=== PATIENT | male | born 1965 | race Caucasian/White ===

== ENCOUNTER 2025-08-20 16:58 | Emergency (ER) | payer BC, SELFPAY ==
--- OUTSIDE RECORDS SUMMARY | 2023-09-05 10:30 | XMS_ITS | Continuity of Care Document ---
Author Organization [facility] Address [address] [place] [address] Phone Care Team Providers Care Lock Tender Chief Operator Name Role Phone Carley BARFIELD, Ilia Unavailable Unavailable Procedures Procedure Date IMMUNIZATION ADMIN FLU VAC NO PRSV 4 ROMÁN 3 YRS+ Advance Directives Directive Yes / No Effective Date File Name No Information Encounters Encounter Description Practice Location Reason(s) For Visit Diagnoses Date Provider Providers Copied on Encounter [facility], [address], [place], [id number], [place] tel:[phone] [facility] No Information Carley NEGRON Ilia. [address] [place] [address], [id number], [place]. tel:[phone] Family History Family Member Type Diagnosis Age At Onset No Information Immunizations Vaccine Date Status Comments Flulaval/ Fluarix administered Source: Ne w Immunization Record Payers Payer name Insurance type Covered republican ID Authoriza tiopal(s) [employer] BL [id number] [facility] [id number] Social History Type Description Quantity Date Captured Comments Alcohol Use Details Unknown Caffeine Use Details Unknown Tobacco Use Status No Information Smoking Status No Information Sex Male Sexual Orientation Straight or heterosexual Gender Identity Male Chief Complaint And Reason For Visit No Information Reason For Referral Reason For Referral No Information Plan Of Treatment Date Type Action Status Goal CT-Colonography. Due on due Goal Unhealthy drug use screening . Due on due Goal Lipid panel. Due on due Goal Colonoscopy. Due on due Goal Influenza vaccine. Due on due Goal FIT. Due on due Goal Tdap. Due on due Goal Depression screening. Due on due Goal Hepatitis C screening. Due o n due Goal Zoster vaccine (). Due on due Goal PRAPARE ASSESSMENT. Due on due Goal Tdap Vaccine. Due on 2023 due Goal FIT-DNA. Due on due Goal FOBT. Due on due History Of Present Illness Encounter Date Complaint History Of Prese nt Illness No Information Functional Status Date Functional Assessmen t No Information Instructions Date Instruction Additional Infor mation No Information Assessments Type Assessment Date No Information Patient Care Teams Name Effective Dates (start - stop) Status Members No Information
--- OUTSIDE RECORDS SUMMARY | 2025-08-16 08:30 | XMS_ITS | Encounter Summary ---
Author Organization [facility] Address [address] [place] [address] Care Team Providers Care Image Consultant Name Role Phone Jim Vale DO Unavailable [phone] Jim Vale DO Primary Care Provider [phone] Reason for Visit * ReasonCommentsEye Problem Encounter Details DateTypeDepartmentCare Team (Latest Contact Info)Fvgabvtcfjl84/22/2025 8:30 AM ESTOffice Visit [facility] [address] [facility] [address] [place] [id number] Janelle Maza NP [address] [facility] [address] [place] [address] Status post fall (Primary Dx); Acute pain of right shoulder; Acute pain of left knee; Vision changes; Hypertensive heart disease without heart failure Social History Tobacco UseTypesPacks/DayYears UsedDateSmoking Tobacco: NeverSmokeless Tobacco: NeverAlcohol UseStandard Drinks/WeekCommentsYes0 (1 standard drink = 0.6 oz pure alcohol)Points: 12, Positive Interpretation; Caffeine: coffee 1-2 cups a day AUDIT-CAnswerDate RecordedQ1: How often do you have a drink containing alcohol?4 or more times a week01/28/2025Q2: How many drinks containing alcohol do you have on a typical day when you are drinking?7 to Q3: How often do you have six or more drinks on one occasion?Daily or almost daily01/28/2025PHQ-2Answer Date RecordedPatient Health Questionnaire-2 [id number] and Gender InformationValueDate RecordedSex Assigned at BirthNot on fileLegal SexMale 11/07/2022 6:58 PM EDTGender IdentityNot on fileSexual OrientationNot on file 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 on fileNot on filedocumented as of this encounter Last Filed Vital Signs Vital SignReadingTime TakenCommentsBlood Elujbtfj217/9008/16/2025 8:45 AM EST Lcpqp670308/16/2025 8:45 AM ESTTemperature--Respiratory Srep996110/17/2024 8:45 AM ESTOxygen Ekudzhikfw42%08/16/2025 8:45 AM ESTInhaled Oxygen Concentration-- Weight--Height--Body Mass Index--documented in this encounter Progress Notes * Janelle Maza, MARISABEL - 08/16/2025 8:30 AM EST Images from the original note were not included. Subjective Patient ID: Alexey Schroeder (: 1965) is a 60 y.o. male who presents for Eye Problem. HPI History of Present Illness The patient presents for evaluation of visual disturbance, shoulder pain, and sleep issues. He experienced a fall, resulting in injuries to his knee, elbow, and shoulder. A few hours post-fall, he noticed a transient visual disturbance in one eye, described as a U-shaped, squiggly pattern that moved back and forth. This episode lasted approximately 20 minutes and was not associated with any headaches. He has not experienced any recurrence of this visual phenomenon since then. He also reports no slurring of speech or any weakness. He states his things his L eye us puffy and red. He denies itching or crusty drainage. He has been experiencing shoulder discomfort for several years, which has limited his range of motion. Previous x-rays suggested a potential rotator cuff tear, but this was not confirmed. He reports persistent soreness in the shoulder and tightness in the elbow, but no significant pain. He does notwant a referral to orthopedics for a cortisone injection. He has been using a CPAP machine for sleep apnea, which initially improved his sleep duration to 5 hours. However, he now reports a regression to 2 hours of sleep per night. He attributes this to frequent urination at night, necessitating bathroom visits every 2 hours. He is scheduled for another sleep study. He does not monitor his blood pressure during stress episodes. Current Outpatient Medications Medication Instructions allopurinol (ZYLOPRIM) 100 mg, Oral, Daily amLODIPine-benazepril (Lotrel) 5-40 MG capsule 1 capsule, Oral, Daily Apple Cider Vinegar 500 MG tablet 1 tablet, Every 24 hours cinnamon 500 mg, Every 24 hours DULoxetine (Cymbalta) [address] capsule TAKE 1 CAPSULE BY MOUTH DAILY, DO NOT CRUSH OR CHEW GARLIC PO Take by mouth indapamide (LOZOL) 2.5 mg, Oral, Every morning Milk Thistle 500 MG capsule 1 capsule, Every 24 hours Multiple Vitamin (Multi Vitamin) tablet 1 tablet, Every 24 hours nebivolol (BYSTOLIC) 5 mg, Oral, Daily nebivolol (BYSTOLIC) 15 mg, Oral, Daily omega-3 (FISH OIL) 1,000 mg, Every 24 hours pancrelipase, Tkg-Ekfp-Krbu, (Zenpep) 13838-15549 units capsule delayed-release particles capsule 1capsule, Oral, Every morning pantoprazole (PROTONIX) 40 mg, Oral, Daily before breakfast, Do not crush, chew, or split. psyllium (Metamucil) 48.57 % powder Daily rosuvastatin (CRESTOR) 20 mg, Oral, Nightly No Known Allergies Patient Active Problem List Diagnosis Atherosclerosis of aorta Atrial arrhythmia Calculus of kidney Gout, unspecified Hoarding behavior Hypertensive heart disease without heart failure Insomnia Obesity Panic attacks Pure hypercholesterolemia Solitary pulmonary nodule Avalos's esophagus without dysplasia Alcohol abuse Coronary artery disease involving [place] si[place] coronary artery of [place]gl[place] sioux heart without angina pectoris Impaired fasting blood sugar Metabolic dysfunction-associated steatohepatitis (MASH) Review of Systems Constitutional: Negative for chills, fatigue and fever. Eyes: Positive for redness and visual disturbance. Musculoskeletal: L knee, R shoulder and elbow pain Objective Vital signs: BP 150/90 (Patient Position: Sitting) Pulse 96 Resp 16 SpO2 96% Physical Exam Constitutional: Appearance: Normal appearance. HENT: Head: Normocephalic. Mouth/Throat: Mouth: Mucous membranes are moist. Eyes: General: Lids are normal. Vision grossly intact. Extraocular Movements: Extraocular movements intact. Conjunctiva/sclera: Right eye: Right conjunctiva is injected. Left eye: Left conjunctiva is injected. Pupils: Pupils are equal, round, and reactive to light. Musculoskeletal: Right shoulder: Tenderness present. Decreased range of motion. Left knee: Swelling present. Decreased range of motion. Tenderness present. Skin: General: Skin is warm and dry. Neurological: Mental Status: He is alert and oriented to person, place, and time. Psychiatric: Mood and Affect: Mood normal. Assessment/Plan Assessment & Plan 1. Visual disturbance: - He reported a transient visual disturbance lasting approximately 20 minutes, characterized by a squiggly U-shaped pattern in one eye. He is unsure what eye this occurred in. There were no associated headaches or recurrent episodes. - He has not seen an eye doctor recently. He states he does have a family history of glaucoma. - He did not have any changes in his speech or any notable weakness. - I discussed ordering a CT scan of the head was discussed as a potential diagnostic measure to rule out any serious underlying conditions. He will monitor his symptoms and ensure they do not recur. If they do, a CT scan will be ordered. If symptoms persist over the Analisa period, he is advised to seek immediate medical attention at the ER. 2. Shoulder pain: - He has chronic shoulder pain with a recent exacerbation following a fall. - Previous x-rays suggested a possible rotator cuff issue, but no MRI was performed. - He declined a referral to orthopedics for a cortisone injection. He will apply ice to the affected area and monitor his symptoms. 3. Sleep issues: - He has been using a CPAP machine but reports inconsistent sleep duration, currently sleeping only2 hours at a time. He attributes this to frequent nighttime urination. - He is scheduled for another sleep study to reassess his condition. 4. Elevated blood pressure: - His blood pressure was recorded at 150/90 during this visit. - He will monitor his blood pressure at home over the weekend and report any significant changes. Problem List Items Addressed This Visit Hypertensive heart disease without heart failure Overview [facility] Other Visit Diagnoses Status post fall - Primary Acute pain of right shoulder Acute pain of left knee Vision changes Health Maintenance Topic Date Due Pneumococcal Vaccine: Pediatrics (0 to 5 Years) and At-Risk Patients (6 to 64 Years) (1 of 2 - PCV)Never done Influenza Vaccine (1) 04/26/2025 Colorectal Cancer Screening 01/09/2034 COVID-19 Vaccine Discontinued Immunization History Administered Date(s) Administered Influenza, injectable, MDCK, preservative free, quadrivalent 09/06/2020 Influenza, injectable, MDCK, quadrivalent 06/13/2018 Influenza, injectable, quadrivalent, preservative free 09/05/2023 Influenza, seasonal, injectable, preservative free 09/05/2012 Influenza, seasonal, intradermal, preservative free 09/10/2013 Moderna SARS-CoV-2 Vaccination 11/12/2020, 12/10/2020, 07/27/2021 Td (adult), 5 Lf tetanus toxoid, preservative free, adsorbed 12/30/2006 Tdap 01/30/2022 Tetanus toxoid, adsorbed 12/30/2006 -Patient's chronic conditions have been reviewed in preparation for this appointment. Protocols reviewed and updated. A collaborative plan of care has been created for pt regarding specific health concerns. Any barriers to care have been identified and addressed. Any part of this document that has been added/copied from other documents has been reviewed for accuracy and updated as appropriate at the time of the patient encounter. - Follow as scheduled or sooner as needed. Janelle Maza NP documented in this encounter Plan of Treatment DateTypeDepartmentCare Team (Latest Contact Info)Egccqktqxfi80/05/2026 9:00 AM ESTOffice Visit [facility] [address] [place] [address] Jim Vale DO [address] [place] [address] documented as of this encounter Visit Diagnoses Diagnosis Status post fall- Primary Acute pain of right shoulder Acute pain of left knee Vision changes Hypertensive heart disease without heart failure Unspecified hypertensive heart disease without heart failure documented in this encounter Care Teams Team MemberRelationshipSpecialtyStart DateEnd Date Jim Vale DO [address] [place] [address] PCP - Narda Morataya11/24/20 Jim Vale DO [address] [place] [address] PCP - GeneralInternal Medicine01/01/23documented as of this encounter
--- OUTSIDE RECORDS SUMMARY | 2025-08-20 12:24 | XMS_ITS | Continuity of Care Document ---
Author Organization [facility] Address [address] [place] [address] Phone Care Team Providers Care Cad Administrator Name Role Phone Jim Vale DO Primary Care Provider Fadumo Garcia NP-C Attending Provider José Miguel Rossi DO Emergency Provider Care Teams Patient Care Team Team Status: Active Member Role/Relationship Status Dates Jim Vale DO Primary Care Provider Active Visit Care Team Team Status: Inactive Member Role/Relationship Status Dates Jim Vale DO Primary Care Provider Active Start: May 26, 2025 End: May 26ndra Radha NP-CAttending ProviderActiveStart: May 26, 2025 End: May 26, 2025 Patient Care Team Team Status: Inactive Member Role/Relationship Status Dates Jim Vale DO Primary Care Provider Active Start: August 20, 2025 End: August 20, 2025Anastacio Kraus ProviderActiveStart: August 20, 2025 End: August 20, 2025 Chief Complaint and Reason for Visit Chief Complaint Admit Date RAMON/ follow up May 26, 2025 8: 36am high bp August 20, 2025 4:27pm Reason for Visit Admit Date Alcoholism May 26, 2025 8: 36am BMI 39.0-39.9,adult May 26, 2025 8: 36am Hypertension May 26, 2025 8: 36am Nocturia May 26, 2025 8: 36am Nocturnal hypoxia October 1st, 2025 8: 36am Sleep apnea May 26, 2025 8: 36am Allergies, Adverse Reactions, Alerts Allergen Type Severity Reaction Last Updated Verified Status No Known Allergies Allergy Unknown April 01, 2025 9:48amYesActive Social History Smoking Status Status Start Date End Date Date of Observa tion Never smoked tobacco (finding) January 30, 2022 8:54pm Observation Status Observation Response Date of Response Legal Sex Male (finding) Sex Assigned At BirthMaleJuly 1964 Problems Active Problems Problem Diagnosis/Recorded Date Onset Date Stat us Screen for colon cancer June 21, 2017 6:22am Unkn own Active Sleep apnea April 30, 2024 8:43am Unknown A ctive Nocturia April 30, 2024 8:45am Unknown A ctive Alcoholism April 30, 2024 8:45am Unknown A ctive Diarrhea June 21, 2017 6:22am Unknown Ac tive Nocturnal hypoxia May 26, 2025 8:50am Unknown Active BMI 39.0-39.9,adult April 30, 2024 8:45am Unknown Active GERD (gastroesophageal reflux disease) June 21, 017 6:22am Unknown Active Barretts esophagus June 21, 2017 6:22am Unknown Active Hypertension January 30, 2022 8:23pm Unknown Active Laceration of foot, right January 30, 2022 7:54pm Unknow n Active Medications Medication Status Dose Units Route Directions Qty Days Refills S tart Date Stop Date End Date Reason(s) Instructions Adherence Allopurinol 100 mg tablet Active 100 MG PO Daily June 20, 2017 11:00pmUnknownAmlodipine-Benazepril 5-10 mg xtwuhzfIhkmge0AOC PODailyOctober 2016 11:00pmUnknownRosuvastatin 20 mg jkywohJisnml72ZMXV DailyOctober 2016 11:83kwIfeyaplHeavuq-Mgtphrlr-Wzjuali (Pork) (Zenpep) 25,000-79,000- 105,000 unit capsule,delayed release(DR/EC)ActiveCAPPOSept2024 11:00pmUnknownduloxetineActivePOSept2024 11:00pmUnknown nebivololActivePOSept2024 11:00pmUnknownpantoprazoleActivePO May 25, 2025 11:00pmUnknown Immunizations Immunization Event Date Not Given Reason Dose Number Glass Novelty Maker Lot Number Reason(s) Given Vaccine Information Statement (VIS) Detail Administration Location Tetanus, Diphtheria, Pertussis (Tdap) [facility] 30[id number] Device Date Implanted Device Details [id number] 0.8-1.7MM August 08, 2018 Vital Signs Vital Reading Result Reference Range Collection Date/Time Height 72 [in_i] May 26, 2025 7:68rbXfpiva374.99 kgOctober 2024 7:52amHeart Rate96 /min 60-100October 2024 7:52amOxygen saturation by Pulse eekwwyel74 %95-100 May 26, 2025 7:52amBP Jnrmvmwj852 mm[Hg]100-140October 2024 7:52amBP Dlqupzppg78 mm[Hg]60-100October 2024 7:52amBMI (Body Mass Index)39.4 kg/m2 May 26, 2025 7:52am Advance Directives Advance Directive Response Recorded Date/ Time Advance Directives No June 19, 2017 12:19pm Insurance Providers Guarantor Wero Gilliland Address [address] [place] [phone] Info.Home Phone: Payer Group Member ID Coverage Type Subscriber Relationship to Subscriber Effective Date Expiration Date Narda SILVER/NIRMALA Retired Id: [id number] Smarsh , M Id: [id number] [address] [address] Home Phone: Email: @[employer]Self Encounters Encounter Location(s) Arrival/Admit Date Discharge/Departure Date Discharge/Departure Disposition Provider(s) Departed Physician/ Provider Office Visit -[facility] May 26, 2025 8:36am May 26, 2025 9:09am Discharged to home care or self care (routine discharge) Fadumo Garcia APRN Departed Emergency -Emergency Room August 20, 2025 4:27pm August 20, 2025 4:35pm Left against medical advice or discontinued care Recent Diagnosis Onset Date Admit Date Alcoholism Unknown May 26 8:36am BMI 39.0-39.9,adult Unknown May 26, 2025 8:36am Hypertension Unknown May 26 8:36am Nocturia Unknown May 26 8:36am Nocturnal hypoxia Unknown May 26, 025 8:36am Sleep apnea Unknown May 26 8:36am Assessments Diagnosis Onset Date Resolution Status Admit Date Alcoholism acuteOctober 2024 8:36amBMI 39.0-39.9,adultacuteOctober 2024 8:36am HypertensionacuteOctober 2024 8:36amNocturiaacuteOctober 2024 8:36am Nocturnal hypoxiaacuteOctober 2024 8:36amSleep apneaacuteOctober 2024 8:36am Plan of Treatment Author [facility] 8:55amAlcohol Use - Patient reports consuming 10 beers daily - Plan: - Advised to reduce alcohol consumption, especially before bedtime - Educated on the negative impact of alcohol on sleep apnea and overall sleep quality Alcohol consumption can have a significant impact in individuals with obstructive sleep apnea.?? Alcohol relaxes the muscles in the upper airway making it easier for the airway to collapse during sleep, leading to more frequent and severe episodes of apnea. Weight reduction would be broadly beneficial for overall health, but would also have direct benefits on apnea severity and sleep quality. Even moderate weight reduction can affect RAMON and snoring, and in some patients weight reduction can completely resolve sleep apnea. Nocturia is a common symptom associated with RAMON. The underlying mechanism involves hormone changes triggered by RAMON that stimulate bladder activity.?? Treating RAMON with CPAP or other interventions can effectively improve sleep quality and reduce nocturia. Hypertension - Blood pressure elevated at 146/95, patient forgot to take medication today - Plan: - Emphasize the importance of medication adherence - Recommend home blood pressure monitoring - Advised on lifestyle modifications, including weight loss and reduced alcohol intake Control of sleep apnea will frequently have a positive effect on blood pressure control, and may additionally reduce blood pressure lability.? HST reviewed with patient IMPRESSION:?? Very severe obstructive sleep apnea, Very severe hypoxia associated with sleep apnea. The adverse effects of uncontrolled RAMON on health, cognition, increased risk of accident were reviewed with patient at great length. Treatment options were discussed and we will go forward with starting an auto CPAP machine with a pressure range of 5/18, an order was sent to the [employer] for this. The patient was encouraged to work closely with the [employer] company to find a mask that is comfortable. He was encouraged to use his machine nightly throughout the entire night as this will provide clinical benefit. The patient will follow-up in 31 to 90 days for new machine follow-up or sooner problems The patient was noted to have severe nocturnal hypoxia on the sleep study. Oxygen saturations were severely decreased with mean of only 88.3%. The oxygen desaturation index was 65 per hour. The lowest saturation was 69%. The patient spent 38.8% of the time in bed with oxygen saturations equal to or below 88%, totaling 118.7 minutes. While this may resolve with control of sleep apnea, in some cases it may persist despite resolution of sleep apnea. Consequently it is advisable to perform home nocturnal pulse oximetry with the PAP device in use to confirm that the hypoxia is controlled. If it persists, supplemental nocturnal O2 should be bled into the PAP device. We will plan to order this study after patient's compliance goals are met.? The diagnosis of Sleep Apnea was reviewed in detail, and handout materials were provided. The patient expresses good understanding, We also reviewed the medical and accident risks associated with sleep apnea and excessive fatigue. The patient is advised to adhere to a proper sleep hygiene schedule and to assure adequate total sleep time; The patient was advised to continue efforts at progressive weight loss, including decreased overall caloric intake quantity and better food choices. The patient was advised to call or return any difficulties arise, including changes in symptoms and/or problems with treatment Patient was verbally informed of the use of an AI-based documentation tool during the encounter. Tool is approved by [facility] and configured for HIPAA-compliant use. No objections voiced. Future Tests Future scheduled test information is unavailable Pending Tests Pending diagnostic test information is unavailable Future Visits Future appointment information is unavailable Future Procedures Future procedure information is unavailable Future Medications Future medication information is unavailable Patient Instructions Patient instructions are unavailable
[2025-08-20 17:03] VITALS: BP 146/96; PULSE 87; TEMP 37.1; O2SAT 99; BMI 39.3
--- OUTSIDE RECORDS SUMMARY | 2025-08-20 17:59 | XMS_ITS | Clinical Summary ---
Author Organization [facility] Healthcare Address [address] [place] [address] Care Team Providers Care Paperhanger Pipe Name Role Phone Jim Vale DO Unavailable [phone] Jim Vale DO Primary Care Provider [phone] Allergies No known active allergies Medications MedicationSigDispense QuantityRefillsLast FilledStart DateEnd DateStatus Apple Cider Vinegar 500 MG tablet Take 1 tablet by mouth 1 (one) time each day at the same time.Active cinnamon 500 MG capsule Take 500 mg by mouth 1 (one) time each day at the same time.Active Milk Thistle 500 MG capsule 1 capsule 1 (one) time each day at the same time.Active Multiple Vitamin (Multi Vitamin) tablet Take 1 tablet by mouth 1 (one) time each day at the same time.Active omega-3 (Fish Oil) 1000 MG capsule Take 1,000 mg by mouth 1 (one) time each day at the same time.Active psyllium (Metamucil) 48.57 % powder Take by mouth Daily.Active indapamide (Lozol) 2.5 MG tablet Indications:Hypertensive heart disease without heart failureTake 1 tablet (2.5 mg) by mouth in the morning.4Active rosuvastatin (Crestor) 20 MG tablet Indications:Hyperlipidemia, unspecified hyperlipidemia typeTAKE 1 TABLET BY MOUTH AT BEDTIME 90 tablet 4Active allopurinol (Zyloprim) 100 MG tablet Indications:Essential (primary) hypertensionTAKE 1 TABLET BY MOUTH EVERY DAY 90 tablet 5Active nebivolol (Bystolic) 5 MG tablet Indications:Hypertensive heart disease without heart failureTake 1 tablet (5 mg) by mouth Daily 90 tablet 5Active pantoprazole (ProtoNix) 40 MG EC tablet Indications:Gastroesophageal reflux disease without esophagitisTake 1 tablet (40 mg) by mouth in the morning. Take before meals. Do not crush, chew, or split. 90 tablet 3045Active amLODIPine-benazepril (Lotrel) 5-40 MG capsule Indications:Hypertensive heart disease without heart failureTake 1 capsule by mouth Daily 90 capsule 307506Active pancrelipase, Mpb-Mjoi-Edua, (Zenpep) 46175-95151 units capsule delayed-release particles capsule Indications:Pancreatic insufficiency (HCC)Take 1 capsule by mouth in the morning. 90 capsule 5003/16/2026ctive DULoxetine (Cymbalta) [address] capsule Indications:Chronic right shoulder pain,Anxiety,Current mild episode of major depressive disorder without prior episodeTAKE 1 CAPSULE BY MOUTH DAILY, DO NOT CRUSH OR CHEW 90 capsule 1085Active GARLIC PO Take by mouthActive nebivolol (Bystolic) 10 MG tablet Indications:Hypertensive heart disease without heart failureTake 1.5 tablets (15 mg) by mouth Daily 180 tablet 516Active Active Problems ProblemNoted DateDiagnosed DateMetabolic dysfunction-associated steatohepatitis (MASH)06/08/2024 Overview (06/08/2024): Fibroscan showed severe steatosis, no fibrosis. Impaired fasting blood sugar05/12/2024oronary artery disease involving chinik coronary artery of chinik heart without angina xbznorgj97/29/2024lcohol abuse 12/04/2023therosclerosis of aorta09/16/2023trial qvbnxtzitu35/22/2024alculus of zuhlbs6209/16/2023Gout, pkvjdncmakp68/22/2024Hoarding /22/2024 Hypertensive heart disease without heart yzxwiys6809/16/2023 Overview (03/22/2025): LVH Zlvbrngx96/22/0984Xhvzgaq45/22/2024anic dcnnrvk0009/16/2023ure mjhkcwurhkxsbthvgllw84/22/2024Solitary pulmonary ymhxtq3409/16/2023arrett's esophagus without gehfthvgu38/22/2024 Resolved Problems ProblemNoted DateDiagnosed DateResolved DatePain of right heel03/22/2025 03/22/2025hilles tendinosis of right lower rhmxaieqb23 Retrocalcaneal bursitis (back of heel), rightRight leg onmmoncr38hronic right shoulder pain Subacromial impingement of right phgvmwzl77ute pain of right mxnuynnu84Hearing loss of right ear due to cerumen impaction hronic pain of right knee/Weight gain Subacromial impingement of left oitggwys16 Fwkhdvj57Fatty liverHypertrophy of prostate without urinary srupyjngade97LVH (left ventricular hypertrophy) Encounters DateTypeDepartmentCare WybxGjzncbsjeuq54/22/2025 8:30 AM ESTOffice Visit [facility] Internal [facility] [address] [place] [address] Janelle Maza NP Status post fall (Primary Dx); Acute pain of right shoulder; Acute pain of left knee; Vision changes; Hypertensive heart disease without heart gmaqvja8408/16/2025amboo flowsheet [facility] Internal Medicine [address] [place] [address] Janelle Maza COVERING MACHINE TENDER 08/16/20258176Abdslf92/17/2025Refill [facility] Internal Medicine [address] [place] [address] Sarah Hayes LPN Hypertensive heart disease without heart nonhlri2407/11/2025Refill [facility] Podiatry [address] [place] [address] DestiniBrett Mc, DPM 06/16/2025Telephone [facility] [address] [facility] [address] [place] [address] Alma Snell, PT PT on-hold; 30 days out from 06/09/2510 9:00 AM EDTTreatment [facility] [address] [facility] [address] [place] [address] Gabe Weber, HANDICAPPER HARNESS RACING Pain of right heel (Primary Dx); Achilles tendinosis of right lower extremity; Retrocalcaneal bursitis (back of heel), right06/09/2025amboo flowsheet [facility] [address] [facility] [address] [place] [address] Gabe Weber, HANDICAPPER HARNESS RACING 06/09/20252090Yiqpdt57/08/2025 9:00 AM EDTTreatment [facility] [address] [facility] [address] [place] [address] Gabe Weber, HANDICAPPER HARNESS RACING Pain of right heel (Primary Dx); Achilles tendinosis of right lower extremity; Retrocalcaneal bursitis (back of heel), right06/02/2025amboo flowsheet [facility] [address] [facility] [address] [place] [address] Gabe Weber, HANDICAPPER HARNESS RACING 06/02/20256913Hrgbzz81/30/2025 10:00 AM EDTTreatment [facility] [address] [facility] [address] [place] [address] Gabe Weber, HANDICAPPER HARNESS RACING Pain of right heel (Primary Dx); Achilles tendinosis of right lower extremity; Retrocalcaneal bursitis (back of heel), right05/25/2025amboo flowsheet [facility] [address] [facility] [address] [place] [address] Gabe Weber, HANDICAPPER HARNESS RACING 05/25/2025Travelfrom Last 3 Months Immunizations ImmunizationAdministration DatesNext DueInfluenza, injectable, MDCK, preservative free, bghvhytcdtpf30/12/2021Influenza, injectable, MDCK, fedsrwrmtsku18/19/2018Influenza, injectable, quadrivalent, preservative free 09/05/2023Influenza, seasonal, injectable, preservative free09/05/2012Influenza, seasonal, intradermal, preservative free09/10/2013Td (adult), 5 Lf tetanus toxoid, preservative free, xkaqjklc57/07/6324Uylp10/07/2022Tetanus toxoid, efkjgphj56/07/2007 Family History Medical HistoryRelationNameCommentsDiabetesFatherDiabetesFather's Brother Multiple myelomaNeg FnYocymbdjEwmcIgnjofJosgcxnjKtyacnz6FcrpdaItfaqujxIlfqfv's BrotherMotherAlive Social History Tobacco UseTypesPacks/DayYears UsedDateSmoking Tobacco: NeverSmokeless Tobacco: Never Tobacco Cessation:Counseling Given: Not Answered Alcohol UseStandard Drinks/WeekCommentsYes0 (1 standard drink = 0.6 [...] or almost daily01/28/2025PHQ-2Answer Date RecordedPatient Health Questionnaire-2 Mjlhw291Sex and Gender InformationValueDate RecordedSex Assigned at BirthNot on fileLegal SexMale 11/07/2022 6:58 PM EDTGender IdentityNot on fileSexual OrientationNot on file 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 on fileNot on file Last Filed Vital Signs Vital SignReadingTime TakenCommentsBlood Qbsrzubw376/9008/16/2025 8:45 AM EST Iigzg352608/16/2025 8:45 AM FXTUyuncfvqhtn15.9 ??C (98.4 ??F)01/28/2025 10:25 AM EDTRespiratory Iwyu554310/17/2024 8:45 AM ESTOxygen Laynnuipkg28%08/16/2025 8:45 AM ESTInhaled Oxygen Concentration--Hvdqyx109 kg (293 lb)01/28/2025 10:25 AM EDT Spzbwa827.9 cm (6')01/28/2025 10:25 AM EDTBody Mass Index39.7401/28/2025 10:25 AM EDT Plan of Treatment DateTypeDepartmentCare Team (Latest Contact Info)Jnuwpurzdjn22/05/2026 9:00 AM ESTOffice Visit [facility] [address] [place] [phone] Jim Vale DO [address] [place] [address] Health MaintenanceDue DateLast DoneCommentsCT Eceauqojngim1963FIT-DNA 1963FIT1963FOBT1963 9167Zdwcnireyfnwp1963Pneumococcal Vaccine: Pediatrics (0 to 5 Years) and At-Risk Patients (6 to 64 Years) (1 of 2 - PCV)1982Influenza Vaccine (#1)5009/05/2023, 09/06/2020, 06/13/2018, Additional history uaekraYodetczbxxf18, 01/09/2024, 06/21/2017Colorectal Cancer Zchpnvyrc16/17/2034 Procedures Procedure NamePriorityDate/TimeAssociated DiagnosisCommentsCOLONOSCOPYRoutine 01/10/2024 11:37 AM EDTfrom Last 3 Months or Most Recently Relevant to Health Maintenance Results * Colonoscopy (01/10/2024 11:37 AM EDT)Anatomical RegionLateralityModality Endoscopy Narrative Authorizing ProviderResult TypeResult StatusPaloly Shanks DOENDOSCOPY PROCEDURE ORDERABLESFinal Result from Last 3 Months or Most Recently Relevant to Health Maintenance Insurance Care Teams Team MemberRelationshipSpecialtyStart DateEnd Date Jim Vale DO [address] [place] [address] [facility] Jim Vale DO [address] [place] [address] PCP - GeneralInternal Medicine01/01/23
--- OUTSIDE RECORDS SUMMARY | 2025-08-20 17:59 | XMS_ITS | Encounter Summary ---
Author Organization [facility] Address [address] [facility] [place] [address] Care Team Providers Care Oracle Apex Developer Name Role Phone Jim Vale DO Unavailable [phone] Jim Vale DO Primary Care Provider [phone] Encounter Details DateTypeDepartmentCare Team (Latest Contact Info)Kmvkkmxhrky57/22/2025Travel Social History Tobacco UseTypesPacks/DayYears UsedDateSmoking Tobacco: NeverSmokeless Tobacco: NeverAlcohol UseStandard Drinks/WeekCommentsYes0 (1 standard drink = 0.6 oz pure alcohol)Points: 12, Positive Interpretation; Caffeine: coffee 1-2 cups a day AUDIT-CAnswerDate RecordedQ1: How often do you have a drink containing alcohol?4 or more times a week01/28/2025Q2: How many drinks containing alcohol do you have on a typical day when you are drinking?7 to 9001/28/2025Q3: How often do you have six or more drinks on one occasion?Daily or almost daily01/28/2025PHQ-2Answer Date RecordedPatient Health Questionnaire-2 Odyod334Sex and Gender InformationValueDate RecordedSex Assigned at BirthNot on fileLegal SexMale 11/07/2022 6:58 PM EDTGender IdentityNot on fileSexual OrientationNot on file 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 on fileNot on filedocumented as of this encounter Plan of Treatment DateTypeDepartmentCare Team (Latest Contact Info)Gzidngkauza09/05/2026 9:00 AM ESTOffice Visit [facility] [address] [facility] [address] [place] [address] Jim Vale DO [address] [place] [address] documented as of this encounter Visit Diagnoses Not on filedocumented in this encounter Care Teams Team MemberRelationshipSpecialtyStart DateEnd Date Jim Vale DO [address] [place] [address] PCP - [facility]11/24/20 Jim Vale DO [address] [place] [address] PCP - GeneralInternal Medicine01/01/23documented as of this encounter
--- OUTSIDE RECORDS SUMMARY | 2025-08-20 17:59 | XMS_ITS | Clinical Summary ---
Author Organization [facility] Address [address] [place] [address] Phone Care Team Providers Care Sportspersons Name Role Phone Jim Vale DO Primary Care Provider Social History Tobacco UseTypesPacks/DayYears UsedDateSmoking Tobacco: Never AssessedSex and Gender InformationValueDate RecordedSex Assigned at BirthNot on fileLegal Sex Male07/21/2022 3:46 AM ESTGender IdentityNot on fileSexual OrientationNot on file Last Filed Vital Signs Vital SignReadingTime TakenCommentsBlood Zbqvtcan714/7803 9:49 AM EDT Lzfre2410 9:46 AM EDTTemperature--Respiratory Rate--Oxygen Saturation-- Inhaled Oxygen Concentration--Wfvcvc385 kg (263 lb)11/08/2021 9:46 AM EDTHeight 180.3 cm (5' 11 )11/08/2021 9:46 AM EDTBody Mass Index36.68011/08/2021 9:46 AM EDT Plan of Treatment Health MaintenanceDue DateLast DoneCommentsCT Odwhrsezrsni1963Colonoscopy 1963Colorectal Cancer Hlwnwuons1963FIT-DNA (Cologuard)1963FIT 1963HIV Qeszvifoa1963Lipid Panel1963 7872Wpxvvngymjkvw1963 Yearly Adult Nageuqka1963MMR Vaccines (1 of 1 - Standard series)1964 Hepatitis C Arckfpdsv49/30/1981Pneumococcal Vaccine (1 of 2 - PCV)1982 DTaP/Tdap/Td Vaccines (1 - Tdap)1985PSA Prostate Cancer Screening 2013Zoster Vaccines (1 of 2)2013COVID-19 Vaccine (1 - 2024- season)2025Influenza Vaccine (#1)2025RSV High Risk: (Elderly (60+) or Population) (1 - 1-dose 75+ series)2038HIB VaccinesAged OutNo longer eligible based on patient's age to complete this topicHPV VaccinesAged OutNo longer eligible based on patient's age to complete this topicHepatitis A VaccinesAged OutNo longer eligible based on patient's age to complete this topic Hepatitis B VaccinesAged OutNo longer eligible based on patient's age to complete this topicIPV VaccinesAged OutNo longer eligible based on patient's age to complete this topicMeningococcal VaccineAged OutNo longer eligible based on patient's age to complete this topicRotavirus VaccinesAged OutNo longer eligible based on patient's age to complete this topic Insurance Care Teams Team MemberRelationshipSpecialtyStart DateEnd Date Jim Vale DO [facility]02/11/15
--- OUTSIDE RECORDS SUMMARY | 2025-08-20 17:59 | XMS_ITS | Encounter Summary ---
Author Organization [facility] Address [address] [place] [address] Care Team Providers Care Nutrition Coordinator Name Role Phone LuzmariarosyJim DO Unavailable [phone] Jim Vale DO Primary Care Provider [phone] Encounter Details DateTypeDepartmentCare Team (Latest Contact Info)Lastabhbxhc23/22/2025amboo flowsheet [facility] [address] [facility] [address] [place] [address] Janelle Maza NP [address] [facility] [address] [place] [address] Social History Tobacco UseTypesPacks/DayYears UsedDateSmoking Tobacco: NeverSmokeless [...] or almost daily01/28/2025PHQ-2Answer Date RecordedPatient Health Questionnaire-2 Oxvyd144Sex and Gender InformationValueDate RecordedSex Assigned at BirthNot on fileLegal SexMale 11/07/2022 6:58 PM EDTGender IdentityNot on fileSexual OrientationNot on file 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 on fileNot on filedocumented as of this encounter Plan of Treatment DateTypeDepartmentCare Team (Latest Contact Info)Zdryczdkrsa90/05/2026 9:00 AM ESTOffice Visit [facility] [place] [facility] [address] [place] [address] Jim Vale DO [address] [place] [address] documented as of this encounter Visit Diagnoses Not on filedocumented in this encounter Care Teams Team MemberRelationshipSpecialtyStart DateEnd Date Jim Vale DO [address] [place] [address] PCP - [facility] [employer]11/24/20 Jim Vale DO [address] [place] [address] PCP - GeneralInternal Medicine01/01/23documented as of this encounter
--- OUTSIDE RECORDS SUMMARY | 2025-08-20 18:00 | XMS_ITS | Patient Health Record ---
Author Organization [facility] [place] Address [address] [place] [address] Care Team Providers Care Armament Repairer Name Role Phone Jim Vale DO Primary Care Provider Unavail able Allergies No Known Allergies Reason For Referral Reason pt is established, l ast seen 2024 Diagnosis 1 Bladder wall thicken ing (N32.89) Referring Provider First Name Mansi Referring Provider Last Name Amol Referring Provider Speciality Nurse Rosaura olmos Referred Organization [facility] Referred Provider Ashish Cage Referred Address [address],[place], [place],[address], Referred Provider Specialty Urology Referral Priority Routine Medications Medication SIG (Take, Route, Frequency, Duration) Notes Start Date End Date Status Pantoprazole Sodium 40 MG TAKE 1 TABLET BY MOUTH EVERY DAY Oral; Duration: 5 ActiveRosuvastatin Calcium 20 MGOral; Duration: 90 DaysActiveAllopurinolActive Tamsulosin HCl 0.4 MGOral; Duration: 90 DaysNot-TakingFLUoxetine HCl 20 MGOral; Duration: 90 DaysActiveNebivolol HCl 5 MGTAKE 1 TABLET BY MOUTH EVERY DAY Oral; Duration: 90 DaysActiveDDAVP 0.2 MG1 tablet at bedtime Orally Once a day; Duration: 30 daysActiveamLODIPine Besy-Benazepril HCl 10-20 MGTAKE 1 CAPSULE BY MOUTH EVERY DAY Oral; Duration: 90 DaysActiveZenpep [address] UNITTAKE 1 CAPSULE BY MOUTH EVERY MORNING Oral; Duration: 90 DaysActiveAspir-81Active Zolpidem Tartrate 10 MG(Schedule IV Drug) TAKE 1/4 TABLET BY MOUTH AT BETIME NEEDED Oral; Duration: 28ActiveCrestorActiveDDAVP 0.2 MG1 tablet at bedtime Orally Once a day; Duration: 30 day(s)Not-TakingDDAVP 0.2 MG1 tablet at bedtime Orally Once a day; Duration: 30 day(s)1ActiveLORazepam 0.5 MG(Schedule IV Drug) TAKE 1 TABLET BY MOUTH ONCE A DAY NEEDED Oral; Duration: 6Not-Taking Social History Tobacco Use: Social History Observation Description Date Details (start date - stop date) Never Smoker NA - NA Tobacco Use/Smoking Question Answer Notes Patient is a nonsmoker Alcohol Screen (Audit-C) Question Answer Notes Did you have a drink containing alcohol in the p ast year? Yes How many drinks did you have on a typical day when you were drinking in the past year?7 to 9 drinks (3 points)How often did you have a drink containing alcohol in the past year?Daily or almost daily (4 points)Wkpwvj3OktjqqnwadvqozBlzccfuj Problems Problem Type SNOMED Code ICD Code Onset Dates Problem Status W/U Status Risk Notes Problem Chronic prostatitis (52283063) Chronic pr ostatitis (N41.1) ActiveconfirmedProblemDisorder of urinary bladder (28928372)Bladder wall thickening (N32.89)ActiveconfirmedProblemLower urinary tract symptoms due to benign prostatic hypertrophy (58928791608856)Benign prostatic hyperplasia with lower urinary tract symptoms (N40.1)Activeconfirmed Plan Of Treatment Future Test Test Name Order Date BMP (BASIC MET PANEL - W/GFR) 04/20/2021 BMP (BASIC MET PANEL - W/GFR) 06/01/2021 Insurance Providers Payer Name Payer Address Payer Phone Subscriber Number Group Number Insured Name Patient Relationship to Insured Coverage Start Date Coverage End Date [employer] ACCESS PPO PLUS LOCAL PLAN [address] [place] [address] [id number] Alexey Schroeder Self - patient is the insured 2 Medical (General) History Medical History History ICD Code hypertension high cholesterolgoutanxietyFrequency of iyhxegxkidtQ88.0Chronic woeikwfuwwbZ10.1 AmeexjuhG61.1Benign prostatic hyperplasia with lower urinary tract fnzkvbnwK13.1 Surgical History Surgery Date(Month/Year) deviated septum surgery hernia surgery
--- NOTE | 2025-08-20 18:08 | ED_ITS ---
HPI HPI - General Adult General Chief complaint: Recheck/Abnormal Lab/Rx Stated complaint: POSS HIGH BP Time Seen by Provider: 08/20/25 16:59 Source: patient Mode of arrival: walk-in History of Present Illness HPI narrative: Patient is a 60-year-old male with a PMH of hypertension that presents to the emergency department with complaints of elevated blood pressure reading that he took at [facility] today. He reports that it was 152/101 there and he had also seen the nurse practitioner at his PCP office on Saturday and the systolic reading was in the 150s as well. He takes amlodipine and Nebivolol. He does note he has a lot of recent extreme stress in his life where his mother is dying and he is not sleeping well. He also states he drinks about 8-10 beers a day. Related Data Allergies Allergy/AdvReac Type Severity Reaction Status Date / Time No Known Drug Allergies Allergy Verified 08/20/25 17:08 Review of Systems ROS Status of ROS 10 or more systems reviewed and unremark able except as noted in history and below PFSH PFSH Social History Little interest or pleasure in doing things: not at all Feeling down, depressed, or hopeless: not at all Exam Narrative Exam Narrative: General: No distress, age-appropriate Skin: Warm, dry, no pallor. No rash. Head: Normocephalic, atraumatic. Neck: Supple, non-tender. Eye: Pupils are equal, round and EOMI. No scleral icterus. Ears, Nose, Mouth, and Throat: No nasal mucosal hypertrophy. Oral mucosa is moist, no posterior oropharynx erythema, uvula is mid-line Cardiovascular: Regular Rate and Rhythm without murmur, gallop or rub. Respiratory: No accessory muscle use or respiratory distress. Lungs are clear to auscultation, no wheezing, rales or rhonchi Chest Wall: no tenderness Back: No midline thoracic or lumbar vertebral tenderness. Musculoskeletal: Full ROM of all extremities, no calf or popliteal tenderness GI: Abdomen is soft, non-distended, non tender to palpation. No masses appreciated. No rebound, guarding, or rigidity noted. Neurological: A&O x4. No cranial nerve dysfunction observed. No truncal ataxia. Moves all extremities. Sensation intact. Psychiatric: Cooperative and interactive. Normal mood and affect. Constitutional Vital Signs, click to edit/add: Last Vital Signs Temp 98.8 F 08/20/25 17:03 Pulse 87 08/20/25 17:03 Resp 16 08/20/25 17:03 BP 146/96 H 08/20/25 17:03 Pulse Ox 99 08/20/25 17:03 Documenting provider has reviewed patient's vital signs: yes Course Vital Signs Vital signs: Vital Signs Temperature 98.8 F 08/20/25 17:03 Pulse Rate 87 08/20/25 17:03 Respiratory Rate 16 08/20/25 17:03 Blood Pressure 146/96 H 08/20/25 17:03 Pulse Oximetry 99 08/20/25 17:03 Temperature 98.8 F 08/20/25 17:03 Pulse Rate 87 08/20/25 17:03 Respiratory Rate 16 08/20/25 17:03 Blood Pressure 146/96 H 08/20/25 17:03 Pulse Oximetry 99 08/20/25 17:03 Medical Decision Making MDM Narrative Medical decision making narrative: The patient is a 60-year-old male with a history of hypertension presenting with an elevated blood pressure of 146/96 in the ER. He is asymptomatic and denies any acute concerns. Given that the patient has been on amlodipine and nebivolol for hypertension, and his blood pressure remains elevated despite treatment, further workup is not indicated at this time. The patient was educated on the potential impact of chronic alcohol use (8-10 beers per day) and stress on his blood pressure, and the importance of reducing alcohol intake and improving sleep hygiene was discussed. No signs of hypertensive emergency are present, and the patient was advised to continue monitoring his blood pressure at home. Follow-up with his primary care provider is recommended for medication review and possible adjustments. The patient was also encouraged to make lifestyle modifications, including stress management strategies and alcohol reduction. Patient discharged in stable condition with plan for PCP followup. Differential Diagnosis Differential Diagnosis: Primary HTN, Secondary HTN, Discharge Plan Discharge Chief Complaint: Recheck/Abnormal Lab/Rx Clinical Impression: Asymptomatic hypertension Patient Disposition: Home, Self-Care Time of Disposition Decision: 18:08 Condition: Good Mode of Transportation: Private Vehicle Print Language: [place] Instructions: Chronic Hypertension (ED) Additional Instructions: ER Discharge Instructions: * Blood Pressure Monitoring: * Continue monitoring blood pressure at home. Keep a log of readings (date, time, BP). * Seek care immediately if systolic BP >180 mmHg, diastolic >120 mmHg, or if you develop chest pain, shortness of breath, severe headache, vision changes, or weakness/numbness. * Medications: * Continue current antihypertensive medications as prescribed: * Amlodipine [dose as prescribed] * Nebivolol [dose as prescribed] * Do not stop medications suddenly. * Lifestyle & Alcohol: * Limit alcohol intake; discuss safe strategies with your primary care provider. * Reduce sodium intake and follow a heart-healthy diet. * Engage in stress-reducing activities if possible (walking, relaxation exercises). * Aim for regular sleep, though stress may make this difficult?consider discussing sleep hygiene with PCP. * Follow-up Care: * Schedule a follow-up with your primary care provider within 1 week to reassess blood pressure and discuss further management. * Consider discussing options for alcohol reduction/support programs (e.g., counseling, support groups). * When to Return to the ER: * Severe headache, chest pain, shortness of breath, vision changes, weakness, or numbness. * Blood pressure readings consistently above 180/120 mmHg. Referrals: LUIS F SANDY [Primary Care Provider, Internal Medicine] - 1 week Discharge Date/Time: 08/20/25 18:21
== END 2025-08-20 18:21 | disposition home or self-care (01) ==
PROVIDERS: Emergency Provider Student in an Organized Health Care Education/Training Program; PCP Internal Medicine
DX: I10 Essential (primary) hypertension (principal); Z79.899 Other long term (current) drug therapy
CPT/HCPCS: 99281